=== PATIENT | female | born 1965 | race Hispanic/Latino ===

== ENCOUNTER → 2024-09-10 | Day surgery (SDC) | payer OTHER ==
[~2024-09-10] MED LIST: ATORVASTATIN CA20 MG PO; CALCIUM ACETAT667 MG PO; CENTRUM ADULTS1 EACH PO; LISINOPRIL10 MG PO
[2024-09-10] MEDS: LACTATED RINGER'S 1,000 ML ONE (06:00)
[2024-09-10 08:44] VITALS: TEMP 97.3
[2024-09-10 09:05] VITALS: BP 120/88; PULSE 77; RESP 18; O2SAT 98
== END | disposition home or self-care (01) ==
LOC: OR 05:39
PROVIDERS: ATTEND Internal Medicine Gastroenterology
DX: Z12.11 Encounter for screening for malignant neoplasm of colon (principal); K63.5 Polyp of colon; K62.1 Rectal polyp; K57.30 Diverticulosis of large intestine without perforation or abscess without bleeding; K64.8 Other hemorrhoids; Z71.3 Dietary counseling and surveillance; I10 Essential (primary) hypertension; E78.5 Hyperlipidemia, unspecified; F17.210 Nicotine dependence, cigarettes, uncomplicated; Z71.6 Tobacco abuse counseling; Z01.810 Encounter for preprocedural cardiovascular examination; Z79.899 Other long term (current) drug therapy; Z68.26 Body mass index [BMI] 26.0-26.9, adult; Z80.0 Family history of malignant neoplasm of digestive organs
CPT/HCPCS: 45380; 45385; 93005; J7121; 45378